=== PATIENT | male | born 1985 | race Caucasian/White ===

== ENCOUNTER 2022-04-25 04:01 | Emergency (ER) | payer OTHER ==
[~2022-04-25] VITALS: Ht 172.7 cm; Wt 120.2 kg
[2022-04-25] MEDS ORDERED: TOPROL XL50 M1 PO ×2 (04:25→08:03)
[2022-04-25] MEDS ORDERED: LISINOPRIL20 MG PO (04:25)
[2022-04-25] MEDS ORDERED: ZYNCOF 20-400120 ML PO (08:03)
[2022-04-25] MEDS ORDERED: ALBUTEROL2.5 MG/3 M IH (08:03)
[2022-04-25] MEDS ORDERED: ZESTRIL20 MG PO (08:03)
[2022-04-25] MEDS ORDERED: SYMBICORT 16010.2 GM IH (08:03)
== END 2022-04-25 08:16 ==
LOC: ER 04:01
DX: J45.909 Unspecified asthma, uncomplicated (principal); I10 Essential (primary) hypertension; Z20.822 Contact with and (suspected) exposure to COVID-19